=== PATIENT | female | born 2000 | race Two or more races ===

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

== ENCOUNTER 2024-11-19 00:26 | Emergency (ER) | payer OTHER ==
[~2024-11-19] VITALS: Ht 160 cm; Wt 118.8 kg
[2024-11-19] MEDS ORDERED: KETOROLAC TROMETHAMINE 60 MG VIAL IM STA (06:49)
[2024-11-19] MEDS ORDERED: ORPHENADRINE CITRATE 30 MG/ML AMPUL IM STA (06:49)
[2024-11-19] MEDS ORDERED: KETOROLAC TROMETHAMINE 60 MG VIAL IM ONE (07:05)
[2024-11-19] MEDS ORDERED: ORPHENADRINE CITRATE 30 MG/ML AMPUL ONE (07:06)
== END 2024-11-19 10:11 | disposition home or self-care (01) ==
LOC: ER 00:28
DX: M54.50 Low back pain, unspecified (principal)